=== PATIENT | male | born 1985 | race African-American/Black ===

== ENCOUNTER 2020-09-06 19:25 | Emergency (ER) | payer MEDICAID, OTHER, SELFPAY ==
[~2020-09-06] VITALS: Ht 177.8 cm; Wt 67.0 kg
[2020-09-06] MEDS ORDERED: DIPH,PERTUSS(ACELL),TET VAC/PF 0.5 ML IM-VACC ONE (20:00)
[2020-09-06 21:40] VITALS: BP 132/89
--- NOTE | 2020-09-06 21:40 | NUR ---
MANAGER HEMATOLOGY: PT. TO ROOM FROM LOBBY AT THIS TIME.
[2020-09-06] MEDS ORDERED: AMOXICILLIN/CLAV 875-125MG TABLET ONE (22:11)
[2020-09-06] MEDS ORDERED: AMOXICILLIN/CLAV 875-125MG TABLET PO ONE (22:30)
[2020-09-06] MEDS ORDERED: NEOSPORIN OINT. PKT 1 PACKET ONE (22:32)
== END 2020-09-06 22:44 | disposition home or self-care (01) ==
LOC: ED 22:42
DX: S60.472A Other superficial bite of right middle finger, initial encounter (principal); S60.474A Other superficial bite of right ring finger, initial encounter; W54.0XXA Bitten by dog, initial encounter; Y93.89 Activity, other specified; Y92.410 Unspecified street and highway as the place of occurrence of the external cause; Y99.8 Other external cause status
CPT/HCPCS: 90471; 90715